=== PATIENT | female | born 1980 | race Caucasian/White ===

== ENCOUNTER 2023-01-21 09:15 | Outpatient (REF) | payer OTHER, SELFPAY ==
[2023-01-24 19:11] LABS: Age Gdln ACOG Testing Note (.); HPV Aptima Negative (Negative); IGP, Aptima HPV, rfx 16/18,45 Note (.)
== END 2023-01-21 09:16 | disposition home or self-care (01) ==
LOC: LAB 09:15
PROVIDERS: Visit Provider Obstetrics & Gynecology
DX: Z01.419 Encounter for gynecological examination (general) (routine) without abnormal findings (principal)
CPT/HCPCS: 87624; G0145

== ENCOUNTER 2024-01-23 19:27 | Outpatient (REF) | payer OTHER, SELFPAY ==
[2024-01-28 08:12] LABS: Age Gdln ACOG Testing Note (.); HPV Aptima Negative (Negative); IGP, Aptima HPV, rfx 16/18,45 Note (.)
== END 2024-01-23 19:28 | disposition home or self-care (01) ==
LOC: LAB 19:27
PROVIDERS: Visit Provider Obstetrics & Gynecology
DX: Z01.419 Encounter for gynecological examination (general) (routine) without abnormal findings (principal)
CPT/HCPCS: 87624; 88175

== ENCOUNTER 2025-01-26 12:23 | Outpatient (REF) | payer OTHER, SELFPAY ==
[2025-01-28 16:09] LABS: Age Gdln ACOG Testing Note (.); HPV Aptima Negative (Negative); IGP, Aptima HPV, rfx 16/18,45 Note (.)
== END 2025-01-26 12:24 | disposition home or self-care (01) ==
LOC: LAB 12:23
PROVIDERS: Visit Provider Obstetrics & Gynecology
DX: Z01.419 Encounter for gynecological examination (general) (routine) without abnormal findings (principal)
CPT/HCPCS: 87624; 88175